=== PATIENT | male | born 1945 | race Caucasian/White ===

== ENCOUNTER 2022-03-16 13:27 | Emergency (ER) | payer MEDICARE ==
[~2022-03-16] VITALS: Ht 165.1 cm; Wt 68.2 kg
[~2022-03-16 13:27] MED LIST: ATEN-72 PO; OMEP20 PO; SIMV-260 PO; TAMS-13 PO
[2022-03-16] MEDS ORDERED: LIDOCAINE 1% 10 ML VIAL ID ONE (17:00)
[2022-03-16] MEDS ORDERED: PERTUSS(ACELL),DIPH,TET VAC/PF 0.5 ML SYRINGE IM. ONE (17:30)
[2022-03-16 17:44] VITALS: BP 136/82
== END 2022-03-16 18:04 | disposition home or self-care (01) ==
LOC: EMS 13:27
DX: S61.212A Laceration without foreign body of right middle finger without damage to nail, initial encounter (principal); E78.00 Pure hypercholesterolemia, unspecified; I10 Essential (primary) hypertension; Z98.890 Other specified postprocedural states; W29.8XXA Contact with other powered hand tools and household machinery, initial encounter; Y93.89 Activity, other specified; Y92.89 Other specified places as the place of occurrence of the external cause; Y99.8 Other external cause status
CPT/HCPCS: 12002; 73130; 90471; 90715; 99283; J3490

== ENCOUNTER 2022-04-02 07:41 | Emergency (ER) | payer MEDICARE ==
[~2022-04-02] VITALS: Ht 162.6 cm; Wt 65.9 kg
[2022-04-02 07:44] VITALS: BP 157/79
== END 2022-04-02 08:27 | disposition home or self-care (01) ==
LOC: EMS 07:41
DX: S61.411D Laceration without foreign body of right hand, subsequent encounter (principal); Z48.02 Encounter for removal of sutures; I10 Essential (primary) hypertension; E78.00 Pure hypercholesterolemia, unspecified; W45.8XXD Other foreign body or object entering through skin, subsequent encounter
CPT/HCPCS: 99281; Z7502